=== PATIENT | male | born 1955 | race African-American/Black ===

== ENCOUNTER 2019-11-09 14:21 | Inpatient (IN) | payer MEDICAID ==
[~2019-11-09] VITALS: Ht 180.3 cm; Wt 166.9 kg
[2019-11-09] MEDS ORDERED: ONDANSETRON HCL 4MG/2ML INJ IV STA (16:33)
[2019-11-09] MEDS ORDERED: MORPHINE SULFATE 4 MG/ML CPJ (NOT FOR IM USE) IV STA (16:33)
[2019-11-09] MEDS ORDERED: ASPIRIN 81MG TABLET PO ONE (16:45)
[2019-11-09 17:00] LABS: BASOPHILS % 0.7 % (0.0-2.0); EOSINOPHILS % 2.7 % (0.0-5.0); HEMATOCRIT. 35.8 % (42.0-52.0); HEMOGLOBIN. 11.3 g/dL (14.0-18.0); LYMPHOCYTES % 14.4 % (20.0-50.0); MEAN CORPUSCULAR HEMOGLOBIN 26.8 pg (28.0-32.0); MEAN CORPUSCULAR VOLUME 84.8 fL (80.0-94.0); MEAN PLATELET VOLUME 8.3 fl (7.4-10.4); MONOCYTES % 9.3 % (2.0-8.0); NEUTROPHILS % 72.9 % (40.0-76.0); PLATELET 187 x1000/uL (130-400); RED BLOOD CELL COUNT 4.22 mill/uL (4.7-6.1); RED CELL DISTRIBUTION WIDTH 18.1 % (11.6-14.6)
[2019-11-09 17:05] LABS: CHLORIDE 106 mEq/L (98-107)
[2019-11-09 17:09] LABS: ETHANOL BLOOD < 10 mg/dL; PARTIAL THROMBOPLASTIN TIME 27.3 sec (23.4-31.0); PROTHROMBIN TIME 9.8 sec (9.6-11.0)
[2019-11-09] MEDS ORDERED: SODIUM CHLORIDE 0.9% 1,000 ML IV ONE ×2 (17:45)
[2019-11-09] MEDS ORDERED: DIPH25TA23 PO (21:50)
[2019-11-09] MEDS ORDERED: CARV12.545 PO (21:50)
[2019-11-09] MEDS ORDERED: FURO40TA5 PO (21:50)
[2019-11-09] MEDS ORDERED: GABA-531 PO (21:50)
[2019-11-09] MEDS ORDERED: FAMO20TA8 PO (21:50)
[2019-11-09] MEDS ORDERED: ASPI-1497 PO (21:50)
[2019-11-09] MEDS ORDERED: METO100T16 PO (21:50)
[2019-11-09] MEDS ORDERED: HYDR-4135 PO (21:50)
[2019-11-09] MEDS ORDERED: ALLO100T PO (21:50)
[2019-11-09] MEDS ORDERED: P20 PO (21:50)
[2019-11-09] MEDS ORDERED: HYDR-4009 PO (21:52)
[2019-11-09 22:00] VITALS: BP 140/82
[2019-11-09] MEDS ORDERED: ONDANSETRON HCL 4MG/2ML INJ IV PRN (22:00)
[2019-11-09] MEDS ORDERED: ACETAMINOPHEN 325MG TABLET PO PRN (22:00)
[2019-11-09] MEDS: MORPHINE SULFATE 2 MG/ML CPJ (NOT FOR IM USE) IV PRN (22:37)
[2019-11-09 22:54] VITALS: BP 140/82
[2019-11-10] VITALS (7 sets, daily range): BP systolic 104–141; BP diastolic 60–73
[2019-11-10] MEDS: ENOXAPARIN 40MG/0.4ML SYR SUBCUT SCH ×3 (00:01→23:51)
[2019-11-10] MEDS: MORPHINE SULFATE 2 MG/ML CPJ (NOT FOR IM USE) IV PRN ×6 (02:26→22:46)
[2019-11-10 07:23] LABS: BASOPHILS % 0.7 % (0.0-2.0); EOSINOPHILS % 2.7 % (0.0-5.0); HEMATOCRIT. 34.7 % (42.0-52.0); HEMOGLOBIN. 10.9 g/dL (14.0-18.0); LYMPHOCYTES % 16.3 % (20.0-50.0); MEAN PLATELET VOLUME 8.9 fl (7.4-10.4); MONOCYTES % 9.4 % (2.0-8.0); NEUTROPHILS % 70.9 % (40.0-76.0); PLATELET 149 x1000/uL (130-400); RED BLOOD CELL COUNT 4.03 mill/uL (4.7-6.1); RED CELL DISTRIBUTION WIDTH 17.9 % (11.6-14.6)
[2019-11-10 08:47] LABS: CHLORIDE 105 mEq/L (98-107)
[2019-11-10] MEDS ORDERED: ASPIRIN 81MG TABLET PO SCH (09:00)
[2019-11-10] MEDS ORDERED: METOPROLOL TARTRATE 25MG TABLET PO SCH (09:00)
[2019-11-10] MEDS: ASPIRIN 81MG EC TABLET PO SCH (10:02)
[2019-11-10] MEDS: METOPROLOL TARTRATE 50MG TABLET PO SCH ×2 (11:00→21:10)
[2019-11-10] MEDS: CLOPIDOGREL 75MG TABLET PO SCH (12:03)
[2019-11-10 12:30] LABS: CREATINE KINASE MB FRACTION 2.2 ng/mL (0.5-3.6)
[2019-11-10] MEDS: ISOSORBIDE DINITRATE 20MG TABLET PO SCH ×3 (14:00→21:10)
[2019-11-10] MEDS: FUROSEMIDE 40MG/4ML VIAL IVP SCH ×2 (14:54→20:16)
[2019-11-10] MEDS: ATORVASTATIN CALCIUM 20MG TABLET PO SCH (21:10)
[2019-11-11] VITALS (7 sets, daily range): BP systolic 99–131; BP diastolic 54–71
[2019-11-11] MEDS: BUDESONIDE 0.5MG/2ML NEB HHN SCH ×3 (00:10→21:11)
[2019-11-11] MEDS: ISOSORBIDE DINITRATE 20MG TABLET PO SCH ×3 (05:50→21:11)
[2019-11-11 07:14] LABS: BASOPHILS % 0.5 % (0.0-2.0); EOSINOPHILS % 1.9 % (0.0-5.0); HEMOGLOBIN. 10.6 g/dL (14.0-18.0); LYMPHOCYTES % 14.2 % (20.0-50.0); MEAN CORPUSCULAR HEMOGLOBIN 26.8 pg (28.0-32.0); MEAN PLATELET VOLUME 8.5 fl (7.4-10.4); MONOCYTES % 9.9 % (2.0-8.0); NEUTROPHILS % 73.5 % (40.0-76.0); PLATELET 147 x1000/uL (130-400); RED BLOOD CELL COUNT 3.95 mill/uL (4.7-6.1); RED CELL DISTRIBUTION WIDTH 17.5 % (11.6-14.6)
[2019-11-11 07:55] LABS: CHLORIDE 102 mEq/L (98-107)
[2019-11-11] MEDS: METOPROLOL TARTRATE 50MG TABLET PO SCH ×2 (09:00→21:11)
[2019-11-11] MEDS: CLOPIDOGREL 75MG TABLET PO SCH (10:15)
[2019-11-11] MEDS: ASPIRIN 81MG EC TABLET PO SCH (10:16)
[2019-11-11] MEDS: ENOXAPARIN 40MG/0.4ML SYR SUBCUT SCH (10:17)
[2019-11-11] MEDS: FUROSEMIDE 40MG/4ML VIAL IVP SCH ×2 (10:17→18:53)
[2019-11-11] MEDS: MORPHINE SULFATE 2 MG/ML CPJ (NOT FOR IM USE) IV PRN (18:53)
[2019-11-11] MEDS: IPRATROPIUM/ALBUTEROL 0.5-3(2.5)MG/3ML NEB HHN PRN (21:11)
[2019-11-11] MEDS: ATORVASTATIN CALCIUM 20MG TABLET PO SCH (21:11)
[2019-11-12] VITALS: BP 115/45
[2019-11-12] MEDS: MORPHINE SULFATE 2 MG/ML CPJ (NOT FOR IM USE) IV PRN ×5 (00:30→23:02)
[2019-11-12] MEDS: ENOXAPARIN 40MG/0.4ML SYR SUBCUT SCH ×3 (00:31→22:41)
[2019-11-12] MEDS: IPRATROPIUM/ALBUTEROL 0.5-3(2.5)MG/3ML NEB HHN PRN ×4 (00:59→20:36)
[2019-11-12 04:00] VITALS: BP 126/72
[2019-11-12] MEDS: ISOSORBIDE DINITRATE 20MG TABLET PO SCH ×3 (05:46→22:41)
[2019-11-12 06:39] LABS: BASOPHILS % 0.2 % (0.0-2.0); EOSINOPHILS % 1.5 % (0.0-5.0); HEMATOCRIT. 32.1 % (42.0-52.0); HEMOGLOBIN. 10.3 g/dL (14.0-18.0); LYMPHOCYTES % 17.6 % (20.0-50.0); MEAN CORPUSCULAR HEMOGLOBIN 27.3 pg (28.0-32.0); MEAN PLATELET VOLUME 8.5 fl (7.4-10.4); MONOCYTES % 9.7 % (2.0-8.0); PLATELET 140 x1000/uL (130-400); RED BLOOD CELL COUNT 3.77 mill/uL (4.7-6.1); RED CELL DISTRIBUTION WIDTH 17.7 % (11.6-14.6)
[2019-11-12 07:43] LABS: CHLORIDE 103 mEq/L (98-107)
[2019-11-12 08:00] VITALS: BP 87/56
[2019-11-12] MEDS: BUDESONIDE 0.5MG/2ML NEB HHN SCH ×2 (08:37→20:36)
[2019-11-12] MEDS: METOPROLOL TARTRATE 50MG TABLET PO SCH ×2 (09:00→21:00)
[2019-11-12] MEDS: ASPIRIN 81MG EC TABLET PO SCH (10:10)
[2019-11-12] MEDS: FUROSEMIDE 40MG/4ML VIAL IVP SCH ×2 (10:10→16:51)
[2019-11-12] MEDS: CLOPIDOGREL 75MG TABLET PO SCH (10:10)
[2019-11-12 12:00] VITALS: BP_SYST 124
[2019-11-12 20:00] VITALS: BP 104/65
[2019-11-12] MEDS: ATORVASTATIN CALCIUM 20MG TABLET PO SCH (22:41)
[2019-11-13] VITALS (7 sets, daily range): BP systolic 101–137; BP diastolic 42–73
[2019-11-13] MEDS: MORPHINE SULFATE 2 MG/ML CPJ (NOT FOR IM USE) IV PRN ×3 (06:24→22:45)
[2019-11-13] MEDS: ISOSORBIDE DINITRATE 20MG TABLET PO SCH (06:43)
[2019-11-13 07:19] LABS: BASOPHILS % 0.3 % (0.0-2.0); EOSINOPHILS % 1.8 % (0.0-5.0); HEMOGLOBIN. 10.4 g/dL (14.0-18.0); LYMPHOCYTES % 14.6 % (20.0-50.0); MEAN CORPUSCULAR HEMOGLOBIN 26.9 pg (28.0-32.0); MEAN CORPUSCULAR VOLUME 85.3 fL (80.0-94.0); MEAN PLATELET VOLUME 8.6 fl (7.4-10.4); MONOCYTES % 8.3 % (2.0-8.0); PLATELET 134 x1000/uL (130-400); RED BLOOD CELL COUNT 3.87 mill/uL (4.7-6.1); RED CELL DISTRIBUTION WIDTH 17.1 % (11.6-14.6)
[2019-11-13 08:31] LABS: CHLORIDE 103 mEq/L (98-107)
[2019-11-13] MEDS: METOPROLOL TARTRATE 50MG TABLET PO SCH (09:00)
[2019-11-13] MEDS: ASPIRIN 81MG EC TABLET PO SCH (09:00)
[2019-11-13] MEDS: BUDESONIDE 0.5MG/2ML NEB HHN SCH ×2 (09:03→21:22)
[2019-11-13] MEDS: IPRATROPIUM/ALBUTEROL 0.5-3(2.5)MG/3ML NEB HHN PRN (09:03)
[2019-11-13] MEDS: FUROSEMIDE 40MG/4ML VIAL IVP SCH ×2 (10:43→18:09)
[2019-11-13] MEDS: CLOPIDOGREL 75MG TABLET PO SCH (10:43)
[2019-11-13] MEDS: ENOXAPARIN 40MG/0.4ML SYR SUBCUT SCH ×2 (10:53→23:39)
[2019-11-13] MEDS: ISOSORBIDE MONONITRATE 60MG TABLET SR 24HR PO SCH (12:15)
[2019-11-13] MEDS: CARVEDILOL 12.5MG TABLET PO SCH (21:00)
[2019-11-13] MEDS: ATORVASTATIN CALCIUM 20MG TABLET PO SCH (21:08)
[2019-11-14 04:00] VITALS: BP 110/69
[2019-11-14] MEDS: MORPHINE SULFATE 2 MG/ML CPJ (NOT FOR IM USE) IV PRN ×2 (05:20→11:37)
[2019-11-14 06:42] LABS: BASOPHILS % 0.3 % (0.0-2.0); EOSINOPHILS % 2.3 % (0.0-5.0); HEMATOCRIT. 32.6 % (42.0-52.0); HEMOGLOBIN. 10.3 g/dL (14.0-18.0); LYMPHOCYTES % 14.5 % (20.0-50.0); MEAN CORPUSCULAR HEMOGLOBIN 26.8 pg (28.0-32.0); MEAN CORPUSCULAR VOLUME 84.6 fL (80.0-94.0); MEAN PLATELET VOLUME 8.6 fl (7.4-10.4); MONOCYTES % 8.6 % (2.0-8.0); NEUTROPHILS % 74.3 % (40.0-76.0); PLATELET 137 x1000/uL (130-400); RED BLOOD CELL COUNT 3.85 mill/uL (4.7-6.1); RED CELL DISTRIBUTION WIDTH 17.5 % (11.6-14.6)
[2019-11-14 07:15] LABS: CHLORIDE 104 mEq/L (98-107)
[2019-11-14 08:00] VITALS: BP 121/65
[2019-11-14] MEDS: CLOPIDOGREL 75MG TABLET PO SCH (09:15)
[2019-11-14] MEDS: FUROSEMIDE 40MG/4ML VIAL IVP SCH ×2 (09:15→16:14)
[2019-11-14] MEDS: ASPIRIN 81MG EC TABLET PO SCH (09:15)
[2019-11-14] MEDS: CARVEDILOL 12.5MG TABLET PO SCH ×2 (09:16→21:00)
[2019-11-14] MEDS: ISOSORBIDE MONONITRATE 60MG TABLET SR 24HR PO SCH (09:16)
[2019-11-14] MEDS: ENOXAPARIN 40MG/0.4ML SYR SUBCUT SCH ×2 (10:51→23:47)
[2019-11-14 12:25] VITALS: BP 109/62
[2019-11-14] MEDS: HYDROCODONE/ACETAMINOPHEN 10/325MG TABLET PO PRN ×2 (12:48→19:58)
[2019-11-14] MEDS ORDERED: COR12 PO (13:35)
[2019-11-14] MEDS ORDERED: ISOS60TA4 PO (13:35)
[2019-11-14] MEDS ORDERED: CLOP75TA15 PO (13:35)
[2019-11-14] MEDS ORDERED: ATOR20TA PO (13:35)
[2019-11-14 16:00] VITALS: BP 97/66
[2019-11-14 20:00] VITALS: BP 108/51
[2019-11-14] MEDS: ATORVASTATIN CALCIUM 20MG TABLET PO SCH (21:21)
[2019-11-15] VITALS (7 sets, daily range): BP systolic 98–118; BP diastolic 50–77
[2019-11-15] MEDS: IPRATROPIUM/ALBUTEROL 0.5-3(2.5)MG/3ML NEB HHN PRN (00:06)
[2019-11-15] MEDS: HYDROCODONE/ACETAMINOPHEN 10/325MG TABLET PO PRN ×2 (02:55→12:05)
[2019-11-15] MEDS: ASPIRIN 81MG EC TABLET PO SCH (08:33)
[2019-11-15] MEDS: FUROSEMIDE 40MG/4ML VIAL IVP SCH (08:33)
[2019-11-15] MEDS: CARVEDILOL 12.5MG TABLET PO SCH (08:34)
[2019-11-15] MEDS: ISOSORBIDE MONONITRATE 60MG TABLET SR 24HR PO SCH (08:34)
[2019-11-15] MEDS: CLOPIDOGREL 75MG TABLET PO SCH (08:34)
[2019-11-15] MEDS: ENOXAPARIN 40MG/0.4ML SYR SUBCUT SCH (12:04)
== END 2019-11-15 20:27 | DRG 133 ==
LOC: ER 14:30 → 7WST 18:37 → EDBEDREQ 18:39 → ENRESERV 19:46
PROVIDERS: ADMIT Internal Medicine; ATTEND Internal Medicine
DX: J96.20 Acute and chronic respiratory failure, unspecified whether with hypoxia or hypercapnia (principal); I24.8 Other forms of acute ischemic heart disease; I11.0 Hypertensive heart disease with heart failure; I50.22 Chronic systolic (congestive) heart failure; E66.2 Morbid (severe) obesity with alveolar hypoventilation; Z68.42 Body mass index [BMI] 45.0-49.9, adult; D64.9 Anemia, unspecified; I25.119 Atherosclerotic heart disease of native coronary artery with unspecified angina pectoris; J44.9 Chronic obstructive pulmonary disease, unspecified; M10.9 Gout, unspecified; Z85.528 Personal history of other malignant neoplasm of kidney; Z99.81 Dependence on supplemental oxygen; Z95.810 Presence of automatic (implantable) cardiac defibrillator; Z80.1 Family history of malignant neoplasm of trachea, bronchus and lung; Z82.49 Family history of ischemic heart disease and other diseases of the circulatory system; Z79.899 Other long term (current) drug therapy
CPT/HCPCS: 36415; 71045; 76705; 80048; 80053; 80061; 80320; 82550; 82553; 83880; 84145; 84443; 84484; 85025; 86850; 86900; 87804; 93005; 93306; 94640; 94660; 96374; 96375; 97116; 97162; 99285; C1893; J1650; J1940; J2270; J2405; J7030; J7620; J7626; G0480

== ENCOUNTER 2019-12-05 13:12 | Inpatient (IN) | payer MEDICAID ==
[~2019-12-05] VITALS: Ht 190.5 cm; Wt 179.6 kg
[~2019-12-05 13:12] MED LIST: ALLO100T PO; ASPI-1497 PO; ATOR20TA PO; CLOP75TA15 PO; COR12 PO; DIPH25TA23 PO; FAMO20TA8 PO; FURO40TA5 PO; GABA-531 PO; HYDR-4009 PO; ISOS60TA4 PO
[2019-12-05] MEDS ORDERED: IPRATROPIUM BROMIDE (0.02%) 0.5MG/2.5ML NEB HHN STA (13:49)
[2019-12-05] MEDS ORDERED: METHYLPREDNISOLONE SOD SUCC 125 MG/2 ML VIAL IV STA (13:49)
[2019-12-05] MEDS ORDERED: ALBUTEROL (0.083%) 2.5MG/3ML NEB HHN STA (13:49)
[2019-12-05 14:56] LABS: BASOPHILS % 0.8 % (0.0-2.0); EOSINOPHILS % 0.3 % (0.0-5.0); HEMATOCRIT. 34.9 % (42.0-52.0); HEMOGLOBIN. 11.5 g/dL (14.0-18.0); LYMPHOCYTES % 10.1 % (20.0-50.0); MEAN CORPUSCULAR HEMOGLOBIN 28.8 pg (28.0-32.0); MEAN CORPUSCULAR VOLUME 87.5 fL (80.0-94.0); MEAN PLATELET VOLUME 9.8 fl (7.4-10.4); MONOCYTES % 6.8 % (2.0-8.0); PLATELET 191 x1000/uL (130-400); RED BLOOD CELL COUNT 3.99 mill/uL (4.7-6.1); RED CELL DISTRIBUTION WIDTH 17.6 % (11.6-14.6)
[2019-12-05 15:01] LABS: CHLORIDE 102 mEq/L (98-107)
[2019-12-05] MEDS ORDERED: FUROSEMIDE 20MG/2ML VIAL IVP ONE (15:45)
[2019-12-05] MEDS ORDERED: MORPHINE SULFATE 4 MG/ML CPJ (NOT FOR IM USE) IV ONE (16:00)
[2019-12-05] MEDS ORDERED: ONDANSETRON HCL 4MG/2ML INJ IV PRN (18:45)
[2019-12-05] MEDS ORDERED: CLONIDINE 0.1MG TABLET PO PRN (18:45)
[2019-12-05] MEDS ORDERED: MAGNESIUM/ALUMINUM HYDROXIDE/SIMETHICONE 30ML UDC PO PRN (18:45)
[2019-12-05 19:19] LABS: TOTAL IRON BINDING CAPACITY 247 ug/dL (250-450)
[2019-12-05] MEDS: ENOXAPARIN 40MG/0.4ML SYR SUBCUT SCH (21:25)
[2019-12-06] VITALS (11 sets, daily range): BP systolic 91–152; BP diastolic 53–99
[2019-12-06] MEDS: MORPHINE SULFATE 2 MG/ML CPJ (NOT FOR IM USE) IV PRN ×2 (01:58→23:29)
[2019-12-06 07:46] LABS: CHLORIDE 102 mEq/L (98-107)
[2019-12-06 07:55] LABS: PHOSPHORUS 2.3 mg/dL (2.5-4.9)
[2019-12-06 07:56] LABS: LDL CHOLESTEROL 113 mg/dL (5-100)
[2019-12-06 07:58] LABS: HDL CHOLESTEROL 40 mg/dL (40-59)
[2019-12-06 08:00] LABS: BG BASE EXCESS 4.6 mmol/L (-2.0-2.0); BG CARBOXYHEMOGLOBIN 0.4 % (0.5-1.5); BG DEOXYHEMOGLOBIN 4.3 % (0.0-5.0); BG FRACTION INSPIRED OXYGEN 21; BG HCO3 ACT 31.3 mmol/L (22.0-26.0); BG METHEMOGLOBIN 0.1 % (0.0-1.5); BG OXYGEN SATURATION 95.7 % (92.0-98.5); BG OXYHEMOGLOBIN 95.2 % (94.0-97.0); BG PCO2 56.7 mmHg (35.0-45.0); BG PO2 82.5 mmHg (75.0-100.0); BG SAMPLE SITE RIGHT RADIAL; BG TOTAL HEMOGLOBIN 11.7 g/dL (12.0-18.0); BG VENT MODE ROOM AIR
[2019-12-06 08:01] LABS: HEMATOCRIT. 33.6 % (42.0-52.0); HEMOGLOBIN. 10.7 g/dL (14.0-18.0); MEAN CORPUSCULAR HEMOGLOBIN 27.6 pg (28.0-32.0); MEAN CORPUSCULAR VOLUME 86.4 fL (80.0-94.0); MEAN PLATELET VOLUME 9.5 fl (7.4-10.4); PLATELET 188 x1000/uL (130-400); RED BLOOD CELL COUNT 3.89 mill/uL (4.7-6.1); RED CELL DISTRIBUTION WIDTH 16.8 % (11.6-14.6)
[2019-12-06] MEDS ORDERED: FUROSEMIDE 40MG/4ML VIAL IV SCH (10:00)
[2019-12-06] MEDS: ENOXAPARIN 40MG/0.4ML SYR SUBCUT SCH ×2 (10:08→21:00)
[2019-12-06] MEDS: FUROSEMIDE 40MG/4ML VIAL IV SCH ×2 (10:30→17:47)
[2019-12-06 10:38] LABS: PLATELET ESTIMATE NORMAL
[2019-12-06] MEDS: LISINOPRIL 2.5MG TABLET PO SCH (12:37)
[2019-12-06 15:15] LABS: CLARITY URINE CLEAR (CLEAR); COLOR URINE YELLOW (YELLOW); KETONES URINE TRACE (NEGATIVE); LEUKOCYTE ESTERASE URINE NEGATIVE (NEGATIVE); NITRITE URINE NEGATIVE (NEGATIVE); OCCULT BLOOD URINE NEGATIVE (NEGATIVE); PH URINE 5.5 (4.5-8.0); PROTEIN URINE TRACE (NEGATIVE); SPECIFIC GRAVITY URINE 1.024 (1.005-1.030); UROBILINOGEN URINE 0.2 E.U./dL (0.2-1.0)
[2019-12-06] MEDS ORDERED: AMIODARONE HCL 50MG/ML 3ML VIAL IV ONE (15:38)
[2019-12-06] MEDS ORDERED: AMIODARONE HCL 900 MG in DEXT 5% WATER 482 ML IV PRN (16:00)
[2019-12-06] MEDS ORDERED: AMIODARONE HCL 150 MG in DEXT 5% WATER 100 ML IV NR (16:30)
[2019-12-06 17:44] LABS: METHADONE URINE SCREEN NEGATIVE (NEGATIVE)
[2019-12-06 17:45] LABS: *AMPHETAMINES SCREEN URINE NEGATIVE (NEGATIVE); *BARBITURATES SCREEN URINE NEGATIVE (NEGATIVE); *BENZODIAZEPINES SCREEN URINE NEGATIVE (NEGATIVE); *COCAINE SCREEN URINE NEGATIVE (NEGATIVE); CANNABINOID URINE SCREEN NEGATIVE (NEGATIVE); OPIATES URINE SCREEN PRESUMTIVE POSITIVE (NEGATIVE); PHENCYCLIDINE URINE SCREEN NEGATIVE (NEGATIVE)
[2019-12-06] MEDS: AMIODARONE HCL 200 MG TABLET PO SCH (17:47)
[2019-12-06] MEDS: POLYETHYLENE GLYCOL 3350 (17GM) 1 DOSE PACK PO SCH (17:47)
[2019-12-06] MEDS: AMIODARONE HCL 900 MG in DEXT 5% WATER 482 ML IV PRN (20:12)
[2019-12-06] MEDS ORDERED: ATORVASTATIN CALCIUM 10MG TABLET PO SCH (21:00)
[2019-12-06] MEDS: CARVEDILOL 6.25 MG TABLET PO SCH (21:00)
[2019-12-06] MEDS: FAMOTIDINE 20MG TABLET PO SCH (21:00)
[2019-12-06] MEDS: ATORVASTATIN CALCIUM 20MG TABLET PO SCH (21:00)
[2019-12-07] VITALS (31 sets, daily range): BP systolic 91–174; BP diastolic 47–117
[2019-12-07 05:56] LABS: BASOPHILS % 0.2 % (0.0-2.0); HEMATOCRIT. 35.8 % (42.0-52.0); HEMOGLOBIN. 11.3 g/dL (14.0-18.0); LYMPHOCYTES % 10.6 % (20.0-50.0); MEAN CORPUSCULAR HEMOGLOBIN 27.6 pg (28.0-32.0); MEAN CORPUSCULAR VOLUME 87.1 fL (80.0-94.0); MEAN PLATELET VOLUME 9.3 fl (7.4-10.4); MONOCYTES % 8.7 % (2.0-8.0); NEUTROPHILS % 80.5 % (40.0-76.0); PLATELET 192 x1000/uL (130-400); RED BLOOD CELL COUNT 4.11 mill/uL (4.7-6.1); RED CELL DISTRIBUTION WIDTH 17.8 % (11.6-14.6)
[2019-12-07 06:04] LABS: CHLORIDE 102 mEq/L (98-107)
[2019-12-07] MEDS: LISINOPRIL 2.5MG TABLET PO SCH (08:27)
[2019-12-07] MEDS: FUROSEMIDE 40MG/4ML VIAL IV SCH ×2 (08:27→17:21)
[2019-12-07] MEDS: AMIODARONE HCL 200 MG TABLET PO SCH ×3 (08:28→17:21)
[2019-12-07] MEDS: ASPIRIN 81MG EC TABLET PO SCH (08:28)
[2019-12-07] MEDS: FAMOTIDINE 20MG TABLET PO SCH ×2 (08:28→20:40)
[2019-12-07] MEDS: CARVEDILOL 6.25 MG TABLET PO SCH (08:28)
[2019-12-07] MEDS: CLOPIDOGREL 75MG TABLET PO SCH (08:28)
[2019-12-07] MEDS: ENOXAPARIN 40MG/0.4ML SYR SUBCUT SCH ×2 (08:28→20:41)
[2019-12-07] MEDS: POLYETHYLENE GLYCOL 3350 (17GM) 1 DOSE PACK PO SCH (08:29)
[2019-12-07] MEDS: IPRATROPIUM/ALBUTEROL 0.5-3(2.5)MG/3ML NEB HHN PRN ×4 (08:51→21:28)
[2019-12-07] MEDS: MORPHINE SULFATE 2 MG/ML CPJ (NOT FOR IM USE) IV PRN ×3 (11:31→22:04)
[2019-12-07] MEDS: CARVEDILOL 12.5MG TABLET PO SCH (20:40)
[2019-12-07] MEDS: ATORVASTATIN CALCIUM 20MG TABLET PO SCH (20:40)
[2019-12-07] MEDS: ACETAMINOPHEN 325MG TABLET PO PRN (20:41)
[2019-12-07] MEDS: AMIODARONE HCL 900 MG in DEXT 5% WATER 482 ML IV PRN (20:57)
[2019-12-08] VITALS (23 sets, daily range): BP systolic 107–178; BP diastolic 54–85
[2019-12-08] MEDS: IPRATROPIUM/ALBUTEROL 0.5-3(2.5)MG/3ML NEB HHN PRN ×5 (00:11→15:49)
[2019-12-08 06:53] LABS: BASOPHILS % 0.3 % (0.0-2.0); EOSINOPHILS % 0.5 % (0.0-5.0); HEMATOCRIT. 35.6 % (42.0-52.0); HEMOGLOBIN. 11.3 g/dL (14.0-18.0); LYMPHOCYTES % 11.2 % (20.0-50.0); MEAN CORPUSCULAR HEMOGLOBIN 27.3 pg (28.0-32.0); MEAN CORPUSCULAR VOLUME 86.1 fL (80.0-94.0); MEAN PLATELET VOLUME 9.3 fl (7.4-10.4); MONOCYTES % 11.9 % (2.0-8.0); NEUTROPHILS % 76.1 % (40.0-76.0); PLATELET 174 x1000/uL (130-400); RED BLOOD CELL COUNT 4.13 mill/uL (4.7-6.1); RED CELL DISTRIBUTION WIDTH 17.5 % (11.6-14.6)
[2019-12-08 06:56] LABS: CHLORIDE 97 mEq/L (98-107)
[2019-12-08] MEDS: FUROSEMIDE 40MG/4ML VIAL IV SCH ×2 (07:30→17:22)
[2019-12-08] MEDS: AMIODARONE HCL 200 MG TABLET PO SCH ×3 (07:31→17:22)
[2019-12-08] MEDS: FAMOTIDINE 20MG TABLET PO SCH ×2 (08:18→20:59)
[2019-12-08] MEDS: CARVEDILOL 12.5MG TABLET PO SCH ×2 (08:19→21:00)
[2019-12-08] MEDS: ASPIRIN 81MG EC TABLET PO SCH (08:19)
[2019-12-08] MEDS: LISINOPRIL 2.5MG TABLET PO SCH (08:19)
[2019-12-08] MEDS: CLOPIDOGREL 75MG TABLET PO SCH (08:20)
[2019-12-08] MEDS: ENOXAPARIN 40MG/0.4ML SYR SUBCUT SCH ×2 (08:20→21:01)
[2019-12-08] MEDS: POLYETHYLENE GLYCOL 3350 (17GM) 1 DOSE PACK PO SCH (08:20)
[2019-12-08] MEDS ORDERED: GUAIFENESIN 200MG TABLET PO PRN (09:00)
[2019-12-08] MEDS: MORPHINE SULFATE 2 MG/ML CPJ (NOT FOR IM USE) IV PRN ×3 (09:15→21:04)
[2019-12-08 09:20] LABS: PHOSPHORUS 3.6 mg/dL (2.5-4.9)
[2019-12-08] MEDS: LISINOPRIL 5MG TABLET PO SCH ×2 (11:33→22:00)
[2019-12-08] MEDS: ACETAMINOPHEN 325MG TABLET PO PRN (17:22)
[2019-12-08] MEDS: ATORVASTATIN CALCIUM 20MG TABLET PO SCH (21:01)
[2019-12-09] VITALS (21 sets, daily range): BP systolic 106–145; BP diastolic 37–96
[2019-12-09] MEDS: MORPHINE SULFATE 2 MG/ML CPJ (NOT FOR IM USE) IV PRN ×4 (02:30→22:19)
[2019-12-09 06:53] LABS: CHLORIDE 97 mEq/L (98-107)
[2019-12-09 06:57] LABS: BASOPHILS % 0.4 % (0.0-2.0); EOSINOPHILS % 0.2 % (0.0-5.0); HEMATOCRIT. 31.1 % (42.0-52.0); HEMOGLOBIN. 10.2 g/dL (14.0-18.0); LYMPHOCYTES % 8.7 % (20.0-50.0); MEAN CORPUSCULAR HEMOGLOBIN 27.8 pg (28.0-32.0); MEAN CORPUSCULAR VOLUME 84.6 fL (80.0-94.0); MEAN PLATELET VOLUME 9.8 fl (7.4-10.4); MONOCYTES % 9.9 % (2.0-8.0); NEUTROPHILS % 80.8 % (40.0-76.0); PLATELET 171 x1000/uL (130-400); RED BLOOD CELL COUNT 3.67 mill/uL (4.7-6.1); RED CELL DISTRIBUTION WIDTH 16.9 % (11.6-14.6)
[2019-12-09] MEDS: ASPIRIN 81MG EC TABLET PO SCH (08:06)
[2019-12-09] MEDS: LISINOPRIL 5MG TABLET PO SCH ×2 (08:07→21:49)
[2019-12-09] MEDS: CLOPIDOGREL 75MG TABLET PO SCH (08:07)
[2019-12-09] MEDS: AMIODARONE HCL 200 MG TABLET PO SCH ×2 (08:07→16:56)
[2019-12-09] MEDS: FAMOTIDINE 20MG TABLET PO SCH ×2 (08:07→21:49)
[2019-12-09] MEDS: CARVEDILOL 12.5MG TABLET PO SCH ×2 (08:07→21:49)
[2019-12-09] MEDS: FUROSEMIDE 40MG/4ML VIAL IV SCH ×2 (08:08→17:30)
[2019-12-09] MEDS: ENOXAPARIN 40MG/0.4ML SYR SUBCUT SCH ×2 (08:08→21:50)
[2019-12-09] MEDS: POLYETHYLENE GLYCOL 3350 (17GM) 1 DOSE PACK PO SCH (08:08)
[2019-12-09] MEDS ORDERED: FUROSEMIDE 20MG/2ML VIAL IVP NR (15:30)
[2019-12-09] MEDS ORDERED: LACTULOSE 20G/30ML UDC PO NR (16:45)
[2019-12-09] MEDS: ACETAMINOPHEN 325MG TABLET PO PRN (20:27)
[2019-12-09] MEDS: ATORVASTATIN CALCIUM 20MG TABLET PO SCH (21:49)
[2019-12-09] MEDS: IPRATROPIUM/ALBUTEROL 0.5-3(2.5)MG/3ML NEB HHN PRN (23:59)
[2019-12-10] VITALS (12 sets, daily range): BP systolic 98–125; BP diastolic 57–73
[2019-12-10] MEDS: MORPHINE SULFATE 2 MG/ML CPJ (NOT FOR IM USE) IV PRN ×3 (02:41→14:37)
[2019-12-10] MEDS: CARVEDILOL 12.5MG TABLET PO SCH ×2 (09:48→21:12)
[2019-12-10] MEDS: ASPIRIN 81MG EC TABLET PO SCH (09:48)
[2019-12-10] MEDS: LISINOPRIL 5MG TABLET PO SCH ×2 (09:49→21:12)
[2019-12-10] MEDS: FAMOTIDINE 20MG TABLET PO SCH ×2 (09:49→21:12)
[2019-12-10] MEDS: AMIODARONE HCL 200 MG TABLET PO SCH ×2 (09:49→17:33)
[2019-12-10] MEDS: ENOXAPARIN 40MG/0.4ML SYR SUBCUT SCH ×2 (09:49→21:13)
[2019-12-10] MEDS: FUROSEMIDE 40MG/4ML VIAL IV SCH ×2 (09:49→17:32)
[2019-12-10] MEDS: CLOPIDOGREL 75MG TABLET PO SCH (09:49)
[2019-12-10] MEDS: POLYETHYLENE GLYCOL 3350 (17GM) 1 DOSE PACK PO SCH (09:49)
[2019-12-10] MEDS: IPRATROPIUM/ALBUTEROL 0.5-3(2.5)MG/3ML NEB HHN PRN ×4 (10:03→20:18)
[2019-12-10] MEDS ORDERED: FUROSEMIDE 20MG/2ML VIAL IVP NR (16:00)
[2019-12-10] MEDS ORDERED: LACTULOSE 20G/30ML UDC PO NR (17:00)
[2019-12-10] MEDS: ACETAMINOPHEN 325MG TABLET PO PRN (20:14)
[2019-12-10] MEDS: ATORVASTATIN CALCIUM 20MG TABLET PO SCH (21:12)
[2019-12-11] VITALS (8 sets, daily range): BP systolic 102–153; BP diastolic 53–105
[2019-12-11 07:10] LABS: CHLORIDE 97 mEq/L (98-107)
[2019-12-11 07:14] LABS: BASOPHILS % 0.3 % (0.0-2.0); EOSINOPHILS % 1.7 % (0.0-5.0); HEMATOCRIT. 33.9 % (42.0-52.0); HEMOGLOBIN. 10.8 g/dL (14.0-18.0); LYMPHOCYTES % 18.4 % (20.0-50.0); MEAN CORPUSCULAR HEMOGLOBIN 27.3 pg (28.0-32.0); MEAN CORPUSCULAR VOLUME 85.8 fL (80.0-94.0); MEAN PLATELET VOLUME 9.3 fl (7.4-10.4); MONOCYTES % 11.8 % (2.0-8.0); NEUTROPHILS % 67.8 % (40.0-76.0); PLATELET 203 x1000/uL (130-400); RED BLOOD CELL COUNT 3.95 mill/uL (4.7-6.1); RED CELL DISTRIBUTION WIDTH 16.9 % (11.6-14.6)
[2019-12-11] MEDS: CLOPIDOGREL 75MG TABLET PO SCH (08:44)
[2019-12-11] MEDS: FAMOTIDINE 20MG TABLET PO SCH ×2 (08:44→21:16)
[2019-12-11] MEDS: ASPIRIN 81MG EC TABLET PO SCH (08:44)
[2019-12-11] MEDS: POLYETHYLENE GLYCOL 3350 (17GM) 1 DOSE PACK PO SCH (08:44)
[2019-12-11] MEDS: LISINOPRIL 5MG TABLET PO SCH (08:45)
[2019-12-11] MEDS: CARVEDILOL 12.5MG TABLET PO SCH ×2 (08:48→21:00)
[2019-12-11] MEDS: ACETAMINOPHEN 325MG TABLET PO PRN ×3 (08:49→21:16)
[2019-12-11] MEDS: AMIODARONE HCL 200 MG TABLET PO SCH ×2 (08:52→18:07)
[2019-12-11] MEDS ORDERED: POTASSIUM CHLORIDE 20MEQ TABLET SR PO NR (09:30)
[2019-12-11] MEDS ORDERED: NA PHOS,M-B/NA PHOS,DI-BA ENEMA 118ML PR NR (09:30)
[2019-12-11] MEDS: IPRATROPIUM/ALBUTEROL 0.5-3(2.5)MG/3ML NEB HHN SCH ×4 (09:40→20:07)
[2019-12-11] MEDS: FUROSEMIDE 40MG/4ML VIAL IV SCH ×2 (09:51→18:07)
[2019-12-11] MEDS: LACTULOSE 20G/30ML UDC PO PRN (09:51)
[2019-12-11] MEDS: ENOXAPARIN 40MG/0.4ML SYR SUBCUT SCH ×2 (12:24→21:17)
[2019-12-11] MEDS ORDERED: FUROSEMIDE 20MG/2ML VIAL IVP NR (14:45)
[2019-12-11] MEDS: LISINOPRIL 10MG TABLET PO SCH (21:00)
[2019-12-11] MEDS: ATORVASTATIN CALCIUM 20MG TABLET PO SCH (21:17)
[2019-12-12] VITALS (7 sets, daily range): BP systolic 109–136; BP diastolic 63–79
[2019-12-12] MEDS: IPRATROPIUM/ALBUTEROL 0.5-3(2.5)MG/3ML NEB HHN SCH ×6 (00:01→21:41)
[2019-12-12] MEDS: ACETAMINOPHEN 325MG TABLET PO PRN ×3 (03:15→20:18)
[2019-12-12 06:13] LABS: CHLORIDE 100 mEq/L (98-107)
[2019-12-12 06:37] LABS: BASOPHILS % 0.5 % (0.0-2.0); EOSINOPHILS % 1.5 % (0.0-5.0); HEMATOCRIT. 30.5 % (42.0-52.0); LYMPHOCYTES % 15.6 % (20.0-50.0); MEAN CORPUSCULAR VOLUME 85.7 fL (80.0-94.0); MEAN PLATELET VOLUME 9.4 fl (7.4-10.4); MONOCYTES % 10.2 % (2.0-8.0); NEUTROPHILS % 72.2 % (40.0-76.0); PLATELET 208 x1000/uL (130-400); RED BLOOD CELL COUNT 3.56 mill/uL (4.7-6.1); RED CELL DISTRIBUTION WIDTH 16.9 % (11.6-14.6)
[2019-12-12] MEDS: FUROSEMIDE 40MG/4ML VIAL IV SCH ×2 (06:52→16:26)
[2019-12-12] MEDS: LISINOPRIL 10MG TABLET PO SCH (09:11)
[2019-12-12] MEDS: ASPIRIN 81MG EC TABLET PO SCH (09:11)
[2019-12-12] MEDS: FAMOTIDINE 20MG TABLET PO SCH ×2 (09:11→21:31)
[2019-12-12] MEDS: ENOXAPARIN 40MG/0.4ML SYR SUBCUT SCH ×2 (09:11→21:32)
[2019-12-12] MEDS: AMIODARONE HCL 200 MG TABLET PO SCH ×2 (09:11→17:40)
[2019-12-12] MEDS: CLOPIDOGREL 75MG TABLET PO SCH (09:12)
[2019-12-12] MEDS: POLYETHYLENE GLYCOL 3350 (17GM) 1 DOSE PACK PO SCH (09:12)
[2019-12-12] MEDS: CARVEDILOL 12.5MG TABLET PO SCH ×2 (09:12→21:32)
[2019-12-12] MEDS: SPIRONOLACTONE 25MG TABLET PO SCH (12:45)
[2019-12-12] MEDS ORDERED: COLCHICINE 0.6MG TABLET PO NR ×2 (15:00→16:44)
[2019-12-12] MEDS: METHYLPREDNISOLONE SOD SUCC 40 MG/ML VIAL IV SCH (16:26)
[2019-12-12] MEDS ORDERED: SPIR25TA PO (16:31)
[2019-12-12] MEDS ORDERED: LISI-604 PO (16:31)
[2019-12-12] MEDS ORDERED: P20 MT (16:31)
[2019-12-12] MEDS ORDERED: POLY17PO3 PO (16:31)
[2019-12-12] MEDS ORDERED: AMI2 PO (16:31)
[2019-12-12] MEDS ORDERED: COLC0.6C3 MT (16:31)
[2019-12-12] MEDS: ATORVASTATIN CALCIUM 20MG TABLET PO SCH (21:32)
[2019-12-12] MEDS: LISINOPRIL 20MG TABLET PO SCH (21:32)
[2019-12-13] VITALS: BP 121/76
[2019-12-13] MEDS: IPRATROPIUM/ALBUTEROL 0.5-3(2.5)MG/3ML NEB HHN SCH ×5 (00:32→16:41)
[2019-12-13] MEDS: METHYLPREDNISOLONE SOD SUCC 40 MG/ML VIAL IV SCH (02:51)
[2019-12-13 04:00] VITALS: BP 126/72
[2019-12-13] MEDS: FUROSEMIDE 40MG/4ML VIAL IV SCH (06:54)
[2019-12-13] MEDS: AMIODARONE HCL 200 MG TABLET PO SCH ×2 (07:59→18:37)
[2019-12-13 08:00] VITALS: BP 116/71
[2019-12-13] MEDS: POLYETHYLENE GLYCOL 3350 (17GM) 1 DOSE PACK PO SCH (09:00)
[2019-12-13] MEDS ORDERED: COLCHICINE 0.6MG TABLET PO SCH (09:30)
[2019-12-13] MEDS ORDERED: ALLOPURINOL 100 MG TABLET PO SCH (09:45)
[2019-12-13] MEDS: ENOXAPARIN 40MG/0.4ML SYR SUBCUT SCH (09:51)
[2019-12-13] MEDS: LACTULOSE 20G/30ML UDC PO PRN (09:51)
[2019-12-13] MEDS: LISINOPRIL 20MG TABLET PO SCH (09:53)
[2019-12-13] MEDS: CARVEDILOL 12.5MG TABLET PO SCH (09:53)
[2019-12-13] MEDS: FAMOTIDINE 20MG TABLET PO SCH (09:53)
[2019-12-13] MEDS: ASPIRIN 81MG EC TABLET PO SCH (09:53)
[2019-12-13] MEDS: CLOPIDOGREL 75MG TABLET PO SCH (09:53)
[2019-12-13] MEDS: SPIRONOLACTONE 25MG TABLET PO SCH (09:54)
[2019-12-13] MEDS: ACETAMINOPHEN 325MG TABLET PO PRN ×2 (09:58→18:40)
[2019-12-13 12:00] VITALS: BP 112/63
[2019-12-13] MEDS ORDERED: FUROSEMIDE 40MG/4ML VIAL IV SCH (12:30)
[2019-12-14] MEDS ORDERED: PREDNISONE 20MG TABLET PO SCH (09:00)
== END 2019-12-13 20:05 | DRG 194 ==
LOC: ER 13:24 → 6WST 16:16 → ENRESERV 12-06 08:19 → CVICU 12-06 19:07 → 3WST 12-07 18:53 → 7WST 12-11 10:14
PROVIDERS: ADMIT Internal Medicine; ATTEND Internal Medicine
PROC: 4B02XTZ Measurement of Cardiac Defibrillator, External Approach (ICD-10-PCS; 2019-12-07)
PROC: 5A09357 Assistance with Respiratory Ventilation, Less than 24 Consecutive Hours, Continuous Positive Airway Pressure (ICD-10-PCS; principal; 2019-12-08)
PROC: 5A09357 Assistance with Respiratory Ventilation, Less than 24 Consecutive Hours, Continuous Positive Airway Pressure (ICD-10-PCS; 2019-12-09)
PROC: 5A09357 Assistance with Respiratory Ventilation, Less than 24 Consecutive Hours, Continuous Positive Airway Pressure (ICD-10-PCS; 2019-12-10)
PROC: 5A09357 Assistance with Respiratory Ventilation, Less than 24 Consecutive Hours, Continuous Positive Airway Pressure (ICD-10-PCS; 2019-12-11)
PROC: 5A09357 Assistance with Respiratory Ventilation, Less than 24 Consecutive Hours, Continuous Positive Airway Pressure (ICD-10-PCS; 2019-12-12)
PROC: 5A09357 Assistance with Respiratory Ventilation, Less than 24 Consecutive Hours, Continuous Positive Airway Pressure (ICD-10-PCS; 2019-12-13)
DX: I11.0 Hypertensive heart disease with heart failure (principal); J96.01 Acute respiratory failure with hypoxia; I47.2 Ventricular tachycardia; J96.02 Acute respiratory failure with hypercapnia; E46 Unspecified protein-calorie malnutrition; E11.42 Type 2 diabetes mellitus with diabetic polyneuropathy; E11.65 Type 2 diabetes mellitus with hyperglycemia; Z68.42 Body mass index [BMI] 45.0-49.9, adult; I08.1 Rheumatic disorders of both mitral and tricuspid valves; I27.29 Other secondary pulmonary hypertension; E66.2 Morbid (severe) obesity with alveolar hypoventilation; I47.1 Supraventricular tachycardia; D64.9 Anemia, unspecified; I25.10 Atherosclerotic heart disease of native coronary artery without angina pectoris; I42.9 Cardiomyopathy, unspecified; J44.9 Chronic obstructive pulmonary disease, unspecified; R07.89 Other chest pain; M10.9 Gout, unspecified; Z99.81 Dependence on supplemental oxygen; Z79.4 Long term (current) use of insulin; Z95.810 Presence of automatic (implantable) cardiac defibrillator; Z88.5 Allergy status to narcotic agent; Z79.899 Other long term (current) drug therapy; Z87.891 Personal history of nicotine dependence; Z79.82 Long term (current) use of aspirin; I50.23 Acute on chronic systolic (congestive) heart failure
CPT/HCPCS: 36415; 36600; 71045; 80048; 80053; 80061; 80305; 81003; 82375; 82805; 82962; 83036; 83540; 83550; 83735; 83880; 84100; 84443; 84484; 84550; 85025; 87804; 93005; 93306; 93970; 93971; 94640; 94644; 94660; 97162; 99285; J0282; J1650; J1940; J2270; J2920; J2930; J7060